=== PATIENT | female | born 1970 | race Caucasian/White ===

== ENCOUNTER 2017-04-18 11:45 | Emergency (ER) | payer OTHER | END 2017-04-18 12:15 | disposition home or self-care (01) | LOC: E/R 11:45 | DX: Z76.0 Encounter for issue of repeat prescription (principal); S01.81XD Laceration without foreign body of other part of head, subsequent encounter; Y04.8XXD Assault by other bodily force, subsequent encounter | CPT/HCPCS: 99281; Z7502 ==

== ENCOUNTER 2017-04-22 12:55 | Emergency (ER) | payer OTHER | END 2017-04-22 14:29 | disposition home or self-care (01) | LOC: FTE 12:55 | DX: H11.32 Conjunctival hemorrhage, left eye (principal); Z48.02 Encounter for removal of sutures | CPT/HCPCS: 99283; Z7502 ==